=== PATIENT | male | born 1985 | race Hispanic/Latino ===

== ENCOUNTER 2017-10-26 10:25 | Emergency (ER) | payer SELFPAY ==
[2017-10-26 11:26] LABS: Bilirubin Negative (Negative); Blood, Urine Negative (Negative); Clarity CLEAR (Clear); Glucose, Urine (Dipstick) Negative (Negative); Leukocyte Negative (Negative); Nitrite Negative (Negative); Protein, Urine (Dipstick) Negative (Neg-Trace); Specific Gravity, Urine 1.016 (1.002-1.036); Urobilinogen 0.2 mg/dL (0.2-1.0)
== END 2017-10-26 12:15 | disposition home or self-care (01) ==
LOC: ERS 10:25
DX: R30.0 Dysuria (principal); F17.210 Nicotine dependence, cigarettes, uncomplicated
CPT/HCPCS: 81003; 99284

== ENCOUNTER 2017-12-18 17:32 | Emergency (ER) | payer SELFPAY ==
[2017-12-18] MEDS ORDERED: Ketorolac Tromethamine 30 MG/ML VIAL ONE (18:48)
[2017-12-18] MEDS ORDERED: Dexamethasone 4 MG TAB ONE (18:49)
[2017-12-18] MEDS ORDERED: Lidocaine Viscous Sol 2% 15 ml UD Cup ONE (19:26)
[2017-12-18] MEDS ORDERED: Mag-Al 1200 mg/1200 mg/30 ML UDCUP ONE (19:28)
--- NOTE | 2017-12-18 20:17 | RAD ---
NECK SOFT TISSUES: 12/18/17 Two views obtained. HISTORY: Neck pain. Feels like something stuck in throat. Epiglottis appears normal. Airway is patent. Prevertebral soft tissues normal. No radiopaque foreign body is seen. No soft tissue mass or encroachment on the airway identified. IMPRESSION: Unremarkable soft tissue exam. POS: [facility]
== END 2017-12-18 19:44 | disposition home or self-care (01) ==
LOC: ERS 17:32
DX: R07.0 Pain in throat (principal); F17.210 Nicotine dependence, cigarettes, uncomplicated
CPT/HCPCS: 70360; 87081; 87430; 96372; J1885; J8540